=== PATIENT | male | born 1950 | race Caucasian/White ===

== ENCOUNTER 2018-05-30 13:17 | Inpatient (IN) ==
[2018-05-30] MEDS ORDERED: Sod Chloride 0.9% Inj 1,000 ML IV.CONT SCH (15:00)
--- NOTE | 2018-05-30 15:10 | ED ---
HPI General Chief Complaint: Neuro Symptoms/Deficit Stated Complaint: Needs CAT SCAN Time Seen by Provider: 05/30/18 14:42 Source: patient and family Mode of arrival: wheelchair Limitations: no limitations History of Present Illness HPI Narrative: 67-year-old male the presents to the ED for evaluation of the presents to the ED for evaluation of weakness to his left side of his body as well as some slurred speech that started since he woke up this morning. Family cannot really tell us how long symptoms have been going but per patient himself the symptoms started when he woke up. Last seen normal yesterday. Patient does have a history of heart disease as well as high cholesterol and hypertension. Takes medications for this. Takes a baby aspirin but no blood thinners. Per family and patient the symptoms continue which is what concerned him. Patient came here for evaluation. Per patient he feels like he keeps veering to the left side of his body. He feels weak on his left side of his arm and leg. He does appear to have some droop to the left side of his face and some slurred speech per family. No blurry vision or double vision. No pain. No chest pain or shortness of breath. No abdominal pain. No bowel movement or urinary issues. No fevers chills or sweats. No cough or runny nose. Related Data Allergies Allergy/AdvReac Type Severity Reaction Status Date / Time No Known Allergies Allergy Verified 05/30/18 14:52 Review of Systems ROS: all other systems reviewed are negative PMFSH History History Provided By: Patient and Family Member Social History Social History Recent Travel in [facility] within the Last 8 Weeks: No Recent Out of Country Travel within the Last 8 Weeks: No Exam Narrative Exam Narrative: GENERAL: Well appearing SKIN: Focused skin assessment warm/dry. HEAD: Atraumatic. Normocephalic. EYES: Pupils equal and round. No scleral icterus. No injection or drainage. ENT: No nasal bleeding or discharge. Mucous membranes pink and moist. Tongue is midline. No uvula deviation. Patient does have facial droop on the left side of the face mainly around the left mouth and cheek. NECK: Trachea midline. No JVD. CARDIOVASCULAR: Regular rate and rhythm. No murmur appreciated. RESPIRATORY: No accessory muscle use. Clear to auscultation. Breath sounds equal bilaterally. GASTROINTESTINAL: Abdomen soft, non-tender, nondistended. Hepatic and splenic margins not palpable. MUSCULOSKELETAL: No obvious deformities. No clubbing. No cyanosis. No edema. Patient has full range of motion of the upper and lower extremities bilaterally. Patient does have some weakness on the left side compared to the right. Patient does have some drift on the left compared to right but very minimal. Finger to nose status appears to be intact. Heel to gilbert does appears to be intact. Patient does appear to be slightly ataxic to the left side with gait otherwise unremarkable. NEUROLOGICAL: Awake and alert. No obvious cranial nerve deficits. Motor grossly within normal limits. Some slurred speech noted with dysarthria. PSYCHIATRIC: Appropriate mood and affect; insight and judgment normal. Course Initial Documented Vital Signs Temperature 97.9 F 05/30/18 13:56 Pulse Rate 60 05/30/18 13:56 Respiratory Rate 18 05/30/18 13:56 Blood Pressure 168/90 H 05/30/18 13:56 Pulse Oximetry 95 05/30/18 13:56 Last Documented Vital Signs Temperature 97.9 F 05/30/18 13:56 Pulse Rate 66 05/30/18 17:00 Respiratory Rate 20 05/30/18 17:00 Blood Pressure 187/84 H 05/30/18 17:00 Pulse Oximetry 96 05/30/18 18:09 NIH Stroke Scale NIH Stroke Scale Level of Consciousness: 0-Alert Orientation Questions: 0-Answers both correct Responds to Commands: 0-Both tasks correct Gaze Eye Movement: 0-Horizontal movement WNL Visual Alex: 0-No visual field defect Facial Movement: 1-Minor facial palsy Motor Functions Arm LEFT: 1-Drift before 10 seconds Motor Functions Arm RIGHT: 0-No drift Motor Functions Leg LEFT: 1-Drift before 5 seconds Motor Functions Leg RIGHT: 0-No drift Limb Ataxia: 1-Ataxia in one limb Sensory Loss: 0-No sensory loss Best Language: 0-Normal Articulation: 1-Mild dysarthia Extinction or Inattention Sensory: 0-Absent Total: 5 Medical Decision Making DARNELL Attestation DARNELL supervised visit: Yes Attestation: I, Dr. Fernandez, have reviewed the advance practice practitioner' s documentation and am in agreement, met with the patient face to face, made the diagnosis, and the medical decision making was done by me. *My assessment and Findings: The patient is a 67-year-old male who arrives to the emergency for dysarthria and left-sided weakness. The patient went to bed last night at 9:30 PM with no symptoms. When the patient awakened this morning he noticed that he has some mild dizziness and some left-sided weakness. The patient felt like he was walking to the left and that the left leg was slightly weak. The patient then noted some dysarthria around 12 to 12:30 PM. The patient now notes dysarthria with mild left-sided weakness, last normal was approximately 9:30 PM. I did perform a physical examination at bedside, visual alex were intact bilaterally, EOMs were intact, patient was noted to have mild left eyelid lag which she states is chronic, mild droop of the left face. He had mild drift the left arm and the left leg, however, they did not fall to the bed. Sensory was intact on the V1, V2, V3 distributions of the face as well as arms and legs symmetrically bilaterally. The patient was able to do finger to nose and heel to gilbert. The patient did have some dysarthria, was alert and oriented 4. Therefore, CT of the brain was ordered and CTA of the brain and neck were performed to evaluate if there is an acute occlusion that could be amenable to interventional radiology. I-STAT creatinine was ordered. I discussed the patient with radiology technicians at 3:18 PM in regards to set CT. MDM Narrative Medical decision making narrative: 67-year-old male the presents to the ED for evaluation of possible stroke. Patient was properly examined by me. Case was immediately discussed with my attending Dr. Fernandez was made aware of findings and agrees with plan. Patient is outside of the 4 hour herbert for stroke alert and TPA. At this time. CVA workup will be done and per his recommendation CT is will be done. My attending himself spoke with Dr. Hawkins who agree with this. CTAs were done as well as CT scan did not show any sign of acute disease. Labs and imaging otherwise were essentially unremarkable. At this time recommendation is for admission for further evaluation of the CVA. Patient and family member agree with this plan. HEPAS was paged. Dr Jean Baptiste agreed to admision. Medical Screen Exam Complete: Yes Emergency Medical Condition: Yes Differential Diagnosis Differential Diagnosis: CVA versus TIA versus neuropathy versus paresthesia versus weakness Medical Records Medical records reviewed: Yes I reviewed the patient's medical records. Lab Data Lab results reviewed: Yes I reviewed the patient's lab results. Lab results narrative: troponin negative Result diagrams: 05/30/18 15:00 05/30/18 15:00 Lab Results 05/30/18 05/30/18 05/30/18 Range/Units 15:00 15:00 15:00 WBC 5.5 (4.0-11.0) th/mm3 RBC 4.30 L (4.50-5.90) mil/mm3 Hgb 15.2 (13.0-17.0) gm/dL POC Hgb (Calc) (13.0-17.0) g/dL Hct 44.2 (39.0-51.0) % POC Hct (39-51.0) % MCV 102.9 H (80.0-100.0) fL MCH 35.4 H (27.0-34.0) pg MCHC 34.4 (32.0-36.0) % RDW 14.0 (11.6-17.2) % Plt Count 151 (150-450) th/mm3 MPV 9.1 (7.0-11.0) fL Neut % (Auto) 59.1 (16.0-70.0) % Lymph % (Auto) 26.2 (9.0-44.0) % [place] % (Auto) 12.8 H (0.0-8.0) % Eos % (Auto) 1.3 (0.0-4.0) % Baso % (Auto) 0.6 (0.0-2.0) % Neut # (Auto) 3.3 (1.8-7.7) th/mm3 Lymph # (Auto) 1.4 (1.0-4.8) th/mm3 [place] # (Auto) 0.7 (0.0-0.9) th/mm3 Eos # (Auto) 0.1 (0.0-0.4) th/mm3 Baso # (Auto) 0.0 (0.0-0.2) th/mm3 WBC Differential . Differential Comment Auto diff final ESR (0-20) mm/hr PT 10.4 (9.8-11.6) sec INR 1.0 Ratio APTT 28.0 (24.3-30.1) sec POC Sodium (137-144) mmol/L Sodium 146 H (136-145) meq/L POC Potassium (3.6-5.0) mmol/L Potassium 4.3 (3.5-5.1) meq/L POC Chloride (102-111) mmol/L Chloride 110 H (98-107) meq/L Carbon Dioxide 28.7 (21.0-32.0) meq/L Anion Gap 7 (5-15) meq/L POC BUN (5-21) mg/dL BUN 22 H (7-18) mg/dL Creatinine 1.23 (0.60-1.30) mg/dL POC Creatinine (0.6-1.3) mg/dL Estimated GFR 59 L (>89) mL/min POC Glucose (68-110) mg/dL Random Glucose 83 (74-106) mg/dL Calcium 9.1 (8.5-10.1) mg/dL Total Bilirubin 0.4 (0.2-1.0) mg/dL AST 17 (15-37) U/L ALT 32 (12-78) U/L Alkaline Phosphatase 63 (45-117) U/L Total Creatine Kinase 72 (39-308) U/L Troponin I Less than 0.02 L (0.02-0.05) ng/mL Total Protein 7.4 (6.4-8.2) g/dL Albumin 3.6 (3.4-5.0) g/dL 05/30/18 05/30/18 Range/Units 15:00 15:22 WBC (4.0-11.0) th/mm3 RBC (4.50-5.90) mil/mm3 Hgb (13.0-17.0) gm/dL POC Hgb (Calc) 13.3 (13.0-17.0) g/dL Hct (39.0-51.0) % POC Hct 39.0 (39-51.0) % MCV (80.0-100.0) fL MCH (27.0-34.0) pg MCHC (32.0-36.0) % RDW (11.6-17.2) % Plt Count (150-450) th/mm3 MPV (7.0-11.0) fL Neut % (Auto) (16.0-70.0) % Lymph % (Auto) (9.0-44.0) % [place] % (Auto) (0.0-8.0) % Eos % (Auto) (0.0-4.0) % Baso % (Auto) (0.0-2.0) % Neut # (Auto) (1.8-7.7) th/mm3 Lymph # (Auto) (1.0-4.8) th/mm3 [place] # (Auto) (0.0-0.9) th/mm3 Eos # (Auto) (0.0-0.4) th/mm3 Baso # (Auto) (0.0-0.2) th/mm3 WBC Differential Differential Comment ESR 10 (0-20) mm/hr PT (9.8-11.6) sec INR Ratio APTT (24.3-30.1) sec POC Sodium 143 (137-144) mmol/L Sodium (136-145) meq/L POC Potassium 3.9 (3.6-5.0) mmol/L Potassium (3.5-5.1) meq/L POC Chloride 108 (102-111) mmol/L Chloride (98-107) meq/L Carbon Dioxide (21.0-32.0) meq/L Anion Gap (5-15) meq/L POC BUN 23 H (5-21) mg/dL BUN (7-18) mg/dL Creatinine (0.60-1.30) mg/dL POC Creatinine 1.2 (0.6-1.3) mg/dL Estimated GFR (>89) mL/min POC Glucose 88 (68-110) mg/dL Random Glucose (74-106) mg/dL Calcium (8.5-10.1) mg/dL Total Bilirubin (0.2-1.0) mg/dL AST (15-37) U/L ALT (12-78) U/L Alkaline Phosphatase (45-117) U/L Total Creatine Kinase (39-308) U/L Troponin I (0.02-0.05) ng/mL Total Protein (6.4-8.2) g/dL Albumin (3.4-5.0) g/dL Imaging Data Attestation: I personally reviewed and interpreted this imaging study as follows : Radiologist's impression: Chest X-Ray 05/30/18 14:52 CONCLUSION: No acute disease Head CT 05/30/18 14:52 CONCLUSION: 1. No acute intracranial pathology. 2. Dense chronic bilateral basal ganglia and paraventricular calcifications are demonstrated. . Head CTA 05/30/18 15:10 CONCLUSION: 1. Unremarkable CTA of the brain for patient's age. Neck CTA 05/30/18 15:10 CONCLUSION: 1. Tortuous proximal left internal carotid artery with focal approximately 40- 45% stenosis exaggerated by tortuosity. 2. No significant right carotid artery stenosis. 3. Patent bilateral vertebral arteries. ECG Data EKG Prior to Arrival: No Attestation: I personally reviewed and interpreted this ECG as follows: Interpretation: EKG reveals sinus bradycardia with a heart rate of 57. No ischemic changes noted. Discharge Plan Discharge Disposition Patient Disposition: 30 Still Patient Discharge Details Diagnosis: Acute CVA (cerebrovascular accident) Physicians Team ED Provider: Eligio Fernandez ED Midlevel Provider: Walter Khan Primary Care Provider: Milo Cox Attending Provider: Ghulam Jean Baptiste Other Providers: Raymon Mccain Status ED Status: Admitted Patient
[2018-05-30 15:27] LABS: Baso % (Auto) 0.6 % (0.0-2.0); Eos # (Auto) 0.1 th/mm3 (0.0-0.4); Eos % (Auto) 1.3 % (0.0-4.0); Hematocrit 44.2 % (39.0-51.0); Hemoglobin 15.2 gm/dL (13.0-17.0); Lymph # (Auto) 1.4 th/mm3 (1.0-4.8); Lymph % (Auto) 26.2 % (9.0-44.0); Mean Corpuscular HGB Conc 34.4 % (32.0-36.0); Mean Corpuscular Hemoglobin 35.4 pg (27.0-34.0); Mean Corpuscular Volume 102.9 fL (80.0-100.0); Mean Platelet Volume 9.1 fL (7.0-11.0); Mono # (Auto) 0.7 th/mm3 (0.0-0.9); Mono % (Auto) 12.8 % (0.0-8.0); Neut # (Auto) 3.3 th/mm3 (1.8-7.7); Neut % (Auto) 59.1 % (16.0-70.0); Platelet Count 151 th/mm3 (150-450); White Blood Count 5.5 th/mm3 (4.0-11.0)
[2018-05-30 15:32] LABS: Prothrombin Time 10.4 sec (9.8-11.6)
--- NOTE | 2018-05-30 15:34 | XR ---
EXAM DATE: 05/30/2018 3:09 PM EDT AGE/SEX: 67 years / Male INDICATIONS: Stroke Alert CLINICAL DATA: This is the patient's initial encounter. Patient reports that signs and symptoms have been present for 1 day and indicates a pain score of 0/10. MEDICAL/SURGICAL HISTORY: Cardiovascular disease. None. COMPARISON: No prior exams available for comparison. FINDINGS: A single AP view of the chest demonstrates the lungs to be symmetrically aerated without evidence of mass, infiltrate or effusion. The cardiomediastinal contours are unremarkable. Osseous structures a re intact. CONCLUSION: No acute disease Electronically signed by: Milo Guerrero MD 05/30/2018 3:32 PM EDT
[2018-05-30 15:49] LABS: Albumin 3.6 g/dL (3.4-5.0); Anion Gap 7 meq/L (5-15); Calcium 9.1 mg/dL (8.5-10.1); Carbon Dioxide 28.7 meq/L (21.0-32.0); Chloride 110 meq/L (98-107); Glucose,Random 83 mg/dL (74-106); Potassium 4.3 meq/L (3.5-5.1); Sodium 146 meq/L (136-145)
[2018-05-30 15:59] LABS: Alanine Aminotransferase 32 U/L (12-78); Alkaline Phosphatase 63 U/L (45-117); Aspartate Aminotransferase 17 U/L (15-37); Blood Urea Nitrogen 22 mg/dL (7-18); Glomerular Filtration Rate 59 mL/min (>89); Total Protein 7.4 g/dL (6.4-8.2)
[2018-05-30 16:02] LABS: Creatine Kinase 72 U/L (39-308)
--- NOTE | 2018-05-30 16:10 | CT ---
EXAM DATE: 05/30/2018 4:05 PM EDT AGE/SEX: 67 years / Male INDICATIONS: Left sided weakness upon waking this am CLINICAL DATA: This is the patient's initial encounter. Patient reports that signs and symptoms have been present for 1 day and indicates a pain score of 0/10. MEDICAL/SURGICAL HISTORY: None. None. RADIATION DOSE: 36.27 CTDI (mGy) COMPARISON: No prior exams available for comparison. TECHNIQUE: CT of the head without contrast. Using automated exposure control and adjustment of the mA and/or kV according to patient size, radiation dose was kept as low as reasonably achievable to ob tain optimal diagnostic quality images. DICOM format image data is available electronically for revi ew and comparison. FINDINGS: Cerebrum: The ventricles are normal for age. No evidence of midline shift, mass lesion, hemorrhage or acute infarction. No extraaxial fluid collections are seen. There are dense calcifications noted in the basal ganglia regions bilaterally. The dense Calcifications also extend along the frontal para ventricular locations bilaterally. These findings are chronic. Posterior Fossa: The cerebellum and brainstem are intact. The 4th ventricle is midline. The cerebe llopontine angle is unremarkable. Extracranial: The visualized portion of the orbits is intact. Skull: The calvaria is intact. No evidence of skull fracture. CONCLUSION: 1. No acute intracranial pathology. 2. Dense chronic bilateral basal ganglia and paraventricular calcifications are demonstrated. . Electronically signed by: Kamron Greer MD 05/30/2018 4:09 PM EDT
--- NOTE | 2018-05-30 16:24 | CT ---
EXAM DATE: 05/30/2018 4:19 PM EDT AGE/SEX: 67 years / Male INDICATIONS: Left sided weakness upon waking this am CLINICAL DATA: This is the patient's initial encounter. Patient reports that signs and symptoms have been present for 1 day and indicates a pain score of 0/10. MEDICAL/SURGICAL HISTORY: None. None. RADIATION DOSE: 28.23 CTDI (mGy) ; Combined studies COMPARISON: No prior exams available for comparison. TECHNIQUE: Volumetric scanning was performed using a multi-row detector CT scanner during bolus infu mony of 73 ml Omnipaque 350 (iohexol) nonionic water-soluble contrast as a cumulative dose for multi ple exams. The data was post processed with a variety of visualization algorithms including full vo lume maximum intensity projection, multi-planar sliding thin slab reformation, curved planar reformat ion, and surface rendering techniques. Using automated exposure control and adjustment of the mA and /or kV according to patient size, radiation dose was kept as low as reasonably achievable to obtain o ptimal diagnostic quality images. DICOM format image data is available electronically for review and comparison. FINDINGS: There is excellent visualization of the major intracranial arteries out to the second-order branch ve ssels. There is no evidence for aneurysm, vessel truncation or stenosis, and no evidence for vascula r malformation. There is a patent left posterior communicating artery. There is some tortuosity of th e basilar artery. CONCLUSION: 1. Unremarkable CTA of the brain for patient's age. Electronically signed by: Kamron Greer MD 05/30/2018 4:22 PM EDT
--- NOTE | 2018-05-30 17:08 | CT ---
EXAM DATE: 05/30/2018 4:34 PM EDT AGE/SEX: 67 years / Male INDICATIONS: Left sided weakness upon waking this morning CLINICAL DATA: This is the patient's initial encounter. Patient reports that signs and symptoms have been present for 1 day and indicates a pain score of 0/10. MEDICAL/SURGICAL HISTORY: None. None. RADIATION DOSE: 28.23 CTDI (mGy) ; Combined studies COMPARISON: [facility], CTA HEAD W CONTRAST W 3D, 05/30/2018. . TECHNIQUE: Volumetric scanning was performed using a multirow detector CT scanner during bolus infus ion of 73 ml Omnipaque 350 (iohexol) nonionic water-soluble contrast as a cumulative dose for multip le exams. The data was postprocessed with a variety of visualization algorithms including full-volu me maximum intensity projection, multiplanar sliding thin-slab reformation, curved-planar reformation , and surface-rendering techniques. Using automated exposure control and adjustment of the mA and/or kV according to patient size, radiation dose was kept as low as reasonably achievable to obtain opti mal diagnostic quality images. DICOM format image data is available electronically for review and co mparison. Percent stenosis is calculated using the diameter of the stenotic region over the diameter of the nor mal distal internal carotid artery. FINDINGS: Aortic Arch: There is a three-vessel origin of the great vessels from the aorta. No evidence of ost ial narrowing Right Carotid: The common carotid artery is intact. The carotid bulb has a normal configuration wit hout ulceration or narrowing. The internal carotid artery lumen is smooth without stenosis. The ext ernal carotid artery is intact. Left Carotid: The common carotid artery is intact. The carotid bulb has a normal configuration with out ulceration or narrowing. There is significant tortuosity of the proximal internal carotid artery with focal approximately 40-45% stenosis exaggerated by the tortuosity. The external carotid artery i s intact. Vertebrals: The vertebral arteries have a symmetric diameter. No stenotic lesions are seen. General Findings: Lung apices are clear. Thyroid is unremarkable by CT. No significant adenopathy. CONCLUSION: 1. Tortuous proximal left internal carotid artery with focal approximately 40-45% stenosis exaggerat ed by tortuosity. 2. No significant right carotid artery stenosis. 3. Patent bilateral vertebral arteries. Electronically signed by: Johnathan Atwood MD 05/30/2018 5:07 PM EDT
--- NOTE | 2018-05-30 18:06 | MB ---
cc: Dennis Hawkins MD DATE: 05/30/2018 HISTORY OF PRESENT ILLNESS: This is a 67-year-old right-handed man with hypertension, hypercholesterolemia, and PA with stent 4 years ago. He takes 162 of aspirin a day. He went to bed, feeling fine. This morning he woke up, felt like he was a little bit off on the left side and it seemed to get worse around noon and he came into the hospital. A stroke alert was called, but he was outside the window for IV TPA. SOCIAL HISTORY: Nonsmoker. Occasionally has a drink. Lives with his friend. FAMILY HISTORY: Positive for cancer. Negative for seizure. Positive stroke in his mother. REVIEW OF SYSTEMS: Denies any diabetes, CABG, AFib, Coumadin, renal, hepatic or pulmonary disease, thyroid disease, lupus, ulcer, cancer, seizure, prior stroke, chest pain, palpitations, headache. ALLERGIES: NO KNOWN DRUG ALLERGIES. MEDICATIONS: He does take two 81 mg of aspirin a day, two of them. PHYSICAL EXAMINATION: GENERAL: He is in sinus rhythm on tele. VITAL SIGNS: Afebrile 168/90 18, 60. NECK: There were no carotid bruits. HEART: Regular rhythm without murmur. NEUROLOGIC: Pupils are equal. Visual dobbins are full. Extraocular movements intact without nystagmus. Face is symmetric with normal sensation. Tongue was midline. There is no drift. He had normal strength in upper and lower extremities bilaterally. DTRs trace throughout. Toes downgoing bilaterally. Pinprick is intact throughout. He is not ataxic on [id number]. He is a bit ataxic on [id number] on the left. Speech is fluent. He is not aphasic, not dysarthric now. DATA: He had a CTA of his head that was read as normal. He had a CT scan of the brain showed a lot of calcification, not only in the basal ganglia, but in the white matter tract bilaterally. I do not see any old strokes. He had a CTA of his neck. Results are pending. The CTA appears to show some very short segment narrowing. The official results pending. In the internal carotid artery and in the distal part of the internal carotid artery above that narrowing the artery is smaller compared to the right side. We await the official report. LABORATORY DATA: Labs show his CBC to be normal except an MCV of 103. His basic metabolic profile was normal. LFT, CPK, troponin, albumin, coags all normal. IMPRESSION: Sounds like he may have had a small stroke when he woke up sometime overnight. He did not get TPA as a result. What we have done is ordered an MRI of the brain and for now we will put him on Plavix, check his LDL. I would restart him on his home medications. I will be following with your in the hospital. We will check an echo and Holter and followup the CTA result. MD KAN Mensah/rom , 05:08 PM , 05:16 PM MTDD
[2018-05-30 18:14] LABS: Free T4 (Free Thyroxine) 0.84 ng/dL (0.76-1.46); Vitamin B12 463 pg/mL (193-986)
[2018-05-30] MEDS ORDERED: Gadobutrol PF 10 MMOL/10 ML Vial (for RAD) IV.SIG ONE (18:30)
[2018-05-30 18:46] LABS: Bilirubin,Urine Negative (Negative); Clarity,Urine Hazy (Clear); Color,Urine Yellow (Yellw/Straw); Glucose,Urine (UA) Negative (Negative); Leukocyte Esterase,Urine Negative (Negative); Mucus,Urine Few /lpf (Occasional); Nitrite,Urine Negative (Negative)
--- NOTE | 2018-05-30 19:04 | MR ---
EXAM DATE: 05/30/2018 6:51 PM EDT AGE/SEX: 67 years / Male INDICATIONS: CVA. Left sided weakness. CLINICAL DATA: This is the patient's initial encounter. Patient reports that signs and symptoms have been present for 1 day and indicates a pain score of 0/10. MEDICAL/SURGICAL HISTORY: Hypertension. Hemorrhoidectomy. ORIF left arm. COMPARISON: [facility] [place], [place] HEAD W/O CONTRAST, 05/30/2018. . TECHNIQUE: Multiplanar, multisequence examination of the brain was performed without and with 9.2 ml Gadavist (gadobutrol) contrast as a single exam dose. FINDINGS: Cerebrum: The ventricles are normal for age. There are areas of low signal seen in the basal gangli a, right caudate, and the periventricular regions corresponding to areas of dense calcification seen on the CT examination. No areas of enhancement or edema are seen in these regions. No evidence of mi dline shift, mass lesion, hemorrhage or acute infarction. No extraaxial fluid collections are seen. The pituitary gland and suprasellar cistern are normal in configuration. White Matter: No significant signal abnormalities are seen in the white matter. Posterior Fossa: The cerebellum and brainstem are intact. The 4th ventricle is midline. The cerebel lopontine angle is unremarkable. The cerebellar tonsils are normal in position. Diffusion Imaging: No focal areas of restricted diffusion are seen. No evidence of acute infarction . Extracranial: The visualized portions of the orbits are unremarkable. There is posterior right ethmo id and anterior right sphenoid sinus disease. Post Contrast: No abnormal areas of parenchymal or dural enhancement. No evidence of blood-brain ba rrier breakdown. CONCLUSION: 1. Dense calcification in the basal ganglia and periventricular regions. Significant mass effect are not seen. These are nonspecific. They aren't almost certainly chronic. They could be secondary to Fa hr's disease or Labrune syndrome. 2. No acute areas of hemorrhage or mass effect are seen. 3. Right ethmoid and sphenoid sinus disease. Electronically signed by: Milo Duarte MD 05/30/2018 7:03 PM EDT
[2018-05-30] MEDS ORDERED: Dextrose 50% in Water 50 ML Vial IV.PUSH PRN (19:21)
[2018-05-30] MEDS: Carvedilol 12.5 MG Tablet PO SCH (20:56)
[2018-05-30] MEDS: Heparin - SQ 10,000 UNITS/ML Vial SQ SCH (20:56)
[2018-05-30] MEDS: Insulin NovoLOG Aspart Correctional Sugar Inj SQ SCH (20:58)
--- NOTE | 2018-05-30 21:26 | P.HPIM ---
History of Present Illness Primary Care Physician: Milo Cox DO History of Present Illness: 67-year-old male with a history of HIV, hypertension and hyperlipidemia presented to the ED with complaints of left-sided weakness and slurred speech that started started yesterday but progressively worsened this morning. He states yesterday he noticed that he was tending to lean to one side and had an unsteady gait and then this morning when he woke up he had a slurred speech. He denies any chest pain, shortness of breath, fever, chills, dizziness, headaches on dysrhythmias. Inpatient Certification: I certify that the inpatient services were ordered in accordance with Medicare regulations governing the order. This includes certification that hospital inpatient services are reasonable and necessary and in the case of services not specified as inpatient-only under 42 CFR 419.22(n), that they are appropriately provided as inpatient services in accordance to with the 2-midnight benchmark under 43 CFR 412.3(e) Estimated Total Length of Stay (Days): 2 Plans for Post Hospital Care: Not yet determined Review of Systems All other systems reviewed negative except as stated in HPI PMFSH - History History Provided By: Patient, Family Member - Medical History Medical History: Medical History (Last Updated 05/30/18 @ 20:55 by Marica Rajan) HIV (human immunodeficiency virus infection) High cholesterol Hypertension - Surgical History Surgical History: Surgical History (Last Updated 05/30/18 @ 20:55 by Marcia Rajan) Stented coronary artery - Family History Family History: Family History (Last Updated 05/30/18 @ 22:39 by TODD Toussaint) Mother HTN (hypertension) - Tobacco History Second Hand Smoke Exposure: No Tobacco Use In Past 30 Days: No Smoking Status: Former smoker Tobacco Type: Cigarettes - Alcohol History How Often Do You Have a Drink Containing Alcohol: Monthly or less - Substance Use History Substance History: No History of Abuse - Travel History Recent Travel in the [place] Within the Last 8 Weeks: No Recent Travel Out of the Country Within the Last 8 Weeks: No - Immunization History Tetanus Immunization: Unsure Hx Influenza Vaccine This Season: Yes Medications and Allergies Active Medications: Active Medications Amitriptyline HCl (Elavil) 50 mg PO DAILY [facility] Aspirin (Ecotrin) 325 mg PO DAILY [facility] Last Admin: 05/30/18 17:31 Dose: 325 mg Carvedilol (Coreg) 12.5 mg PO BID [facility] Last Admin: 05/30/18 20:56 Dose: 12.5 mg Clopidogrel Bisulfate (Plavix) 75 mg PO DAILY [facility] Last Admin: 05/30/18 17:31 Dose: 75 mg Dextrose (D50w Vial) 50 ml IV.PUSH UNSCH PRN PRN Reason: PER HYPOGLYCEMIA PROTOCOL Dolutegravir Sodium (Tivicay) 50 mg PO BID [facility] Glucagon (Glucagon Inj) 1 mg OTHER UNSCH PRN PRN Reason: for Hypoglycemia Protocol Heparin Sodium (Porcine) (Heparin Inj) 5,000 units SQ Q12HR [facility] Last Admin: 05/30/18 20:56 Dose: 5,000 units Sodium Chloride (Ns Inj) 1,000 mls @ 70 mls/hr IV.CONT .[id number] [facility] Stop: 05/31/18 05:17 Last Admin: 05/30/18 15:35 Dose: 70 mls/hr Insulin Aspart (Novolog Insulin Correctional Sugar Inj) 0 unit SQ ACHS [facility]; Protocol Last Admin: 05/30/18 20:58 Dose: Not Given Maraviroc (Selzentry) 300 mg PO BID [facility] Med: Emtricitab-Rilpivir- Tenofo Ala (Odefsey) Tab 0 each PO DAILY [facility] Med: Valacyclovir 1,000 Mg Tablet 0 each PO DAILY [facility] Sodium Chloride (Ns Flush) 2 ml IV.FLUSH BID [facility] Sodium Chloride (Ns Flush) 2 ml IV.FLUSH PRN PRN PRN Reason: FLUSH AFTER USING IV ACCESS Allergies Allergy/AdvReac Type Severity Reaction Status Date / Time No Known Allergies Allergy Verified 05/30/18 14:52 Home Medications Medication Instructions Recorded Confirmed Type amitriptyline 50 mg PO DAILY 05/30/18 05/30/18 History amlodipine 2.5 mg PO DAILY 05/30/18 05/30/18 History aspirin [Aspirin Childrens] 81 mg PO DAILY 05/30/18 05/30/18 History atorvastatin 10 mg PO DAILY 05/30/18 05/30/18 History carvedilol 12.5 mg PO BID 05/30/18 05/30/18 History dolutegravir [Tivicay] 50 mg PO BID 05/30/18 05/30/18 History swohgcbqyc-wvjjcmrc-fdcvut ala 1 tab PO DAILY 05/30/18 05/30/18 History [Odefsey] losartan 50 mg PO DAILY 05/30/18 05/30/18 History maraviroc [Selzentry] 300 mg PO BID 05/30/18 05/30/18 History pioglitazone 45 mg PO DAILY 05/30/18 05/30/18 History valacyclovir 1,000 mg PO DAILY 05/30/18 05/30/18 History Exam Vital signs: Vital Signs 05/30/18 13:56 05/30/18 14:23 05/30/18 15:00 Temperature 97.9 F Pulse Rate 60 59 L 58 L Respiratory Rate 18 17 Blood Pressure 168/90 H 160/88 H 160/88 H Pulse Oximetry 95 97 05/30/18 17:00 05/30/18 18:09 05/30/18 19:00 Temperature Pulse Rate 66 59 L Respiratory Rate 20 18 Blood Pressure 187/84 H 137/78 Pulse Oximetry 95 96 Intake & Output 05/30/18 05/30/18 05/31/18 06:59 18:59 06:59 Weight 92.986 kg Narrative: GENERAL: This is a well-nourished, well-developed patient, in no apparent distress. SKIN: Warm, dry, intact, no ecchymosis or open lesions EYES: Pupils equal round and reactive, no scleral edema or drainage CARDIOVASCULAR: Regular rate and rhythm without murmurs, gallops, or rubs. RESPIRATORY: Clear to auscultation. Breath sounds equal bilaterally. No wheezes , rales, or rhonchi. GASTROINTESTINAL: Abdomen soft, non-tender, nondistended. Normal active bowel sounds MUSCULOSKELETAL: Extremities without clubbing, cyanosis, or edema. NEURO: Alert & Oriented x4 to person, place, time, situation. Moves all ext x4 , left side 3/4 muscle strength, left facial droop, mild left upper extremity drift, decreased left plantar flexion, slurred speech. Results - Labs CBC & Chem 7: 05/30/18 15:00 05/30/18 15:00 Labs: Short CBC 05/30/18 Range/Units 15:00 WBC 5.5 (4.0-11.0) th/mm3 Hgb 15.2 (13.0-17.0) gm/dL Hct 44.2 (39.0-51.0) % Plt Count 151 (150-450) th/mm3 BMP 05/30/18 15:00 Sodium 146 H Potassium 4.3 Chloride 110 H Carbon Dioxide 28.7 BUN 22 H Creatinine 1.23 Calcium 9.1 Cardiac Enzymes 05/30/18 Range/Units 15:00 Total Creatine Kinase 72 (39-308) U/L Troponin I Less than 0.02 L (0.02-0.05) ng/mL Liver Function 05/30/18 Range/Units 15:00 Total Bilirubin 0.4 (0.2-1.0) mg/dL AST 17 (15-37) U/L ALT 32 (12-78) U/L Alkaline Phosphatase 63 (45-117) U/L Albumin 3.6 (3.4-5.0) g/dL Urine 05/30/18 Range/Units 18:15 Urine Color Yellow (Yellw/Straw) Urine Clarity Hazy H (Clear) Urine pH 6.0 (5.0-8.5) Ur Specific [place] 1.030 (1.002-1.035) Urine Protein 30 H (Neg-Trace) mg/dL Urine Glucose (UA) Negative (Negative) mg/dL - Imaging Impressions Chest X-Ray 05/30/18 14:52 CONCLUSION: No acute disease Head CT 05/30/18 14:52 CONCLUSION: 1. No acute intracranial pathology. 2. Dense chronic bilateral basal ganglia and paraventricular calcifications are demonstrated. . Head CTA 05/30/18 15:10 CONCLUSION: 1. Unremarkable CTA of the brain for patient's age. Neck CTA 05/30/18 15:10 CONCLUSION: 1. Tortuous proximal left internal carotid artery with focal approximately 40- 45% stenosis exaggerated by tortuosity. 2. No significant right carotid artery stenosis. 3. Patent bilateral vertebral arteries. Head MRI 05/30/18 17:05 CONCLUSION: 1. Dense calcification in the basal ganglia and periventricular regions. Significant mass effect are not seen. These are nonspecific. They aren't almost certainly chronic. They could be secondary to Fahr's disease or Labrune syndrome. 2. No acute areas of hemorrhage or mass effect are seen. 3. Right ethmoid and sphenoid sinus disease. Caprini VTE Risk Assessment Caprini VTE Risk Assessment: Moderate/High Risk (score >= 2) Caprini Risk Assessment Model: Point Value = 1 Point Value = 2 Point Value = 3 Point Value = 5 Age 41-60 Minor surgery BMI > 25 kg/m2 Swollen legs Varicose veins or History of unexplained or recurrent spontaneous Oral contraceptives or hormone replacement Sepsis (< 1 month) Serious lung disease, including pneumonia (< 1 month) Abnormal pulmonary function Acute myocardial infarction Congestive heart failure (< 1 month) History of inflammatory bowel disease Medical patient at bed rest Age 61-74 Arthroscopic surgery Major open surgery (> 45 min) Laparoscopic surgery (> 45 min) Malignancy Confined to bed (> 72 hours) Immobilizing plaster cast Central venous access Age >= 75 History of VTE Family history of VTE Factor V Leiden Prothrombin [id number] Lupus anticoagulant Anticardiolipin antibodies Elevated serum homocysteine Heparin-induced thrombocytopenia Other congenital or acquired thrombophilia Stroke (< 1 month) Elective arthroplasty Hip, pelvis, or leg fracture Acute spinal cord injury (< 1 month) Prophylaxis Regimen: Total Risk Factor Score Risk Level Prophylaxis Regimen 0-1 Low Early ambulation 2 Moderate Order ONE of the following: *Sequential Compression Device (SCD) *Heparin 5000 units SQ BID 3-4 Higher Order ONE of the following medications: *Heparin 5000 units SQ TID *Enoxaparin/Lovenox 40 mg SQ daily (WT < 150 kg, CrCl > 30 mL/min) *Enoxaparin/Lovenox 30 mg SQ daily (WT < 150 kg, CrCl > 10-29 mL/min) *Enoxaparin/Lovenox 30 mg SQ BID (WT < 150 kg, CrCl > 30 mL/min) AND/OR *Sequential Compression Device (SCD) 5 or more Highest Order ONE of the following medications: *Heparin 5000 units SQ TID (Preferred with Epidurals) *Enoxaparin/Lovenox 40 mg SQ daily (WT < 150 kg, CrCl > 30 mL/min) *Enoxaparin/Lovenox 30 mg SQ daily (WT < 150 kg, CrCl > 10-29 mL/min) *Enoxaparin/Lovenox 30 mg SQ BID (WT < 150 kg, CrCl > 30 mL/min) AND *Sequential Compression Device (SCD) Assessment and Plan - Plan CVA Head CT reviewed and shows no acute intracranial pathology, chronic bilateral basal ganglia and periventricular calcifications MRI reviewed and shows no acute areas of hemorrhage or mass, dense calcification in the basal ganglia seen again no mass-effect Head CT unremarkable Neck CTA reviewed and shows tortuous proximal left internal carotid artery with focal approximately 40-45% stenosis exaggerated by tortuosity. -2D echo, Holter monitor ordered -Consult neurology -PT/OT/ST -Lipid profile, A1c ordered -NIH, neuro checks -Plavix ordered -Continue home atorvastatin -Head of bed flat Hypertension, chronic -Continue home medications carvedilol, hold losartan -monitor vitals HIV, chronic -Resume home medications, medications unavailable patient is able to take his own home meds Depression, chronic -Continue amitriptyline DVT prophylaxis: SCDs Discussed Condition With: Patient and RN
[2018-05-30 23:57] LABS: Amphetamine Screen,Urine Neg (Neg); Barbiturate Screen,Urine Neg (Neg); Cannabinoid Screen,Urine Neg (Neg); Cocaine Screen,Urine Neg (Neg); Opiate Screen,Urine Neg (Neg)
[2018-05-31 07:09] LABS: Chol/HDL Ratio 4.05 Ratio; HDL Cholesterol 37.7 mg/dL (40.0-60.0)
--- NOTE | 2018-05-31 08:07 | P.PNNEU ---
Subjective Subjective Comments: no new co bp up Active Medications: Active Medications Amitriptyline HCl (Elavil) 50 mg PO DAILY [facility] Aspirin (Ecotrin) 325 mg PO DAILY [facility] Last Admin: 05/30/18 17:31 Dose: 325 mg Atorvastatin Calcium (Lipitor) 10 mg PO DAILY [facility] Carvedilol (Coreg) 12.5 mg PO BID [facility] Last Admin: 05/30/18 20:56 Dose: 12.5 mg Clopidogrel Bisulfate (Plavix) 75 mg PO DAILY [facility] Last Admin: 05/30/18 17:31 Dose: 75 mg Dextrose (D50w Vial) 50 ml IV.PUSH UNSCH PRN PRN Reason: PER HYPOGLYCEMIA PROTOCOL Dolutegravir Sodium (Tivicay) 50 mg PO BID [facility] Last Admin: 05/30/18 21:49 Dose: Not Given Glucagon (Glucagon Inj) 1 mg OTHER UNSCH PRN PRN Reason: for Hypoglycemia Protocol Heparin Sodium (Porcine) (Heparin Inj) 5,000 units SQ Q12HR [facility] Last Admin: 05/30/18 20:56 Dose: 5,000 units Insulin Aspart (Novolog Insulin Correctional Sugar Inj) 0 unit SQ [facility]; Protocol Last Admin: 05/30/18 20:58 Dose: Not Given Maraviroc (Selzentry) 300 mg PO BID [facility] Last Admin: 05/30/18 21:49 Dose: Not Given [facility] Med: Emtricitab-Rilpivir- Tenofo Ala (Odefsey) Tab 0 each PO DAILY [facility]: Valacyclovir 1,000 Mg Tablet 0 each PO DAILY [facility] Sodium Chloride (Ns Flush) 2 ml IV.FLUSH BID [facility] Last Admin: 05/31/18 04:36 Dose: 2 ml Sodium Chloride (Ns Flush) 2 ml IV.FLUSH PRN PRN PRN Reason: FLUSH AFTER USING IV ACCESS Allergies/Adverse Reactions: Allergies Allergy/AdvReac Type Severity Reaction Status Date / Time No Known Allergies Allergy Verified 05/30/18 14:52 Physical Exam Vital signs: Vital Signs 05/30/18 13:56 05/30/18 14:23 05/30/18 15:00 Temperature 97.9 F Pulse Rate 60 59 L 58 L Respiratory Rate 18 17 Blood Pressure 168/90 H 160/88 H 160/88 H Pulse Oximetry 95 97 05/30/18 17:00 05/30/18 18:09 05/30/18 19:00 Temperature Pulse Rate 66 59 L Respiratory Rate 20 18 Blood Pressure 187/84 H 137/78 Pulse Oximetry 95 96 05/30/18 21:37 05/30/18 23:32 05/31/18 00:00 Temperature 98.0 F Pulse Rate 60 57 L Respiratory Rate 17 17 Blood Pressure 187/91 H Pulse Oximetry 93 L 05/31/18 04:00 05/31/18 05:00 Temperature 97.9 F Pulse Rate 52 L Respiratory Rate 17 17 Blood Pressure 193/95 H Pulse Oximetry 99 Intake & Output 05/30/18 05/31/18 05/31/18 18:59 06:59 18:59 Output Total 350 / 350 Balance -350 / -350 Weight 92.986 kg 92.9 kg Output: Urine 350 / 350 Other: Date of Last Bowel Movement 05/30/18 Narrative: some left droop puffs out left cheek 5/5 left speech minimal abn Objective Laboratory Results - last 24 hr 05/30/18 05/30/18 05/30/18 15:00 15:00 15:00 WBC 5.5 RBC 4.30 L Hgb 15.2 POC Hgb (Calc) Hct 44.2 POC Hct MCV 102.9 H MCH 35.4 H MCHC 34.4 RDW 14.0 Plt Count 151 MPV 9.1 Neut % (Auto) 59.1 Lymph % (Auto) 26.2 [place] % (Auto) 12.8 H Eos % (Auto) 1.3 Baso % (Auto) 0.6 Neut # (Auto) 3.3 Lymph # (Auto) 1.4 [place] # (Auto) 0.7 Eos # (Auto) 0.1 Baso # (Auto) 0.0 WBC Differential . Differential Comment Auto diff final ESR PT 10.4 INR 1.0 APTT 28.0 POC Sodium Sodium 146 H POC Potassium Potassium 4.3 POC Chloride Chloride 110 H Carbon Dioxide 28.7 Anion Gap 7 POC BUN BUN 22 H Creatinine 1.23 POC Creatinine Estimated GFR 59 L POC Glucose Random Glucose 83 Calcium 9.1 Total Bilirubin 0.4 AST 17 ALT 32 Alkaline Phosphatase 63 Total Creatine Kinase 72 Troponin I Less than 0.02 L Total Protein 7.4 Albumin 3.6 Triglycerides Cholesterol HDL Cholesterol Cholesterol/HDL Ratio Vitamin B12 Folate Free T4 Urine Color Urine Clarity Urine pH Ur Specific [place] Urine Protein Urine Glucose (UA) Urine Ketones Urine Occult Blood Urine Nitrate Urine Bilirubin Urine Urobilinogen Ur Leukocyte Esterase Urine RBC Urine WBC Urine Mucus Micro UA Comment Ur Microscopic Review Urine Culture Comments Urine Opiates Screen Ur Barbiturates Screen Ur Amphetamines Screen U Benzodiazepines Scrn Urine Cocaine Screen U Cannabinoids Screen 05/30/18 05/30/18 05/30/18 15:00 15:00 15:22 WBC RBC Hgb POC Hgb (Calc) 13.3 Hct POC Hct 39.0 MCV MCH MCHC RDW Plt Count MPV Neut % (Auto) Lymph % (Auto) [place] % (Auto) Eos % (Auto) Baso % (Auto) Neut # (Auto) Lymph # (Auto) [place] # (Auto) Eos # (Auto) Baso # (Auto) WBC Differential Differential Comment ESR 10 PT INR APTT POC Sodium 143 Sodium POC Potassium 3.9 Potassium POC Chloride 108 Chloride Carbon Dioxide Anion Gap POC BUN 23 H BUN Creatinine POC Creatinine 1.2 Estimated GFR POC Glucose 88 Random Glucose Calcium Total Bilirubin AST ALT Alkaline Phosphatase Total Creatine Kinase Troponin I Total Protein Albumin Triglycerides Cholesterol HDL Cholesterol Cholesterol/HDL Ratio Vitamin B12 463 Folate Greater than 20.0 H Free T4 0.84 Urine Color Urine Clarity Urine pH Ur Specific [place] Urine Protein Urine Glucose (UA) Urine Ketones Urine Occult Blood Urine Nitrate Urine Bilirubin Urine Urobilinogen Ur Leukocyte Esterase Urine RBC Urine WBC Urine Mucus Micro UA Comment Ur Microscopic Review Urine Culture Comments Urine Opiates Screen Ur Barbiturates Screen Ur Amphetamines Screen U Benzodiazepines Scrn Urine Cocaine Screen U Cannabinoids Screen 05/30/18 05/30/18 05/31/18 18:15 18:15 00:58 WBC RBC Hgb POC Hgb (Calc) Hct POC Hct MCV MCH MCHC RDW Plt Count MPV Neut % (Auto) Lymph % (Auto) [place] % (Auto) Eos % (Auto) Baso % (Auto) Neut # (Auto) Lymph # (Auto) [place] # (Auto) Eos # (Auto) Baso # (Auto) WBC Differential Differential Comment ESR PT INR APTT POC Sodium Sodium POC Potassium Potassium POC Chloride Chloride Carbon Dioxide Anion Gap POC BUN BUN Creatinine POC Creatinine Estimated GFR POC Glucose 116 H Random Glucose Calcium Total Bilirubin AST ALT Alkaline Phosphatase Total Creatine Kinase Troponin I Total Protein Albumin Triglycerides Cholesterol HDL Cholesterol Cholesterol/HDL Ratio Vitamin B12 Folate Free T4 Urine Color Yellow Urine Clarity Hazy H Urine pH 6.0 Ur Specific [place] 1.030 Urine Protein 30 H Urine Glucose (UA) Negative Urine Ketones Negative Urine Occult Blood Negative Urine Nitrate Negative Urine Bilirubin Negative Urine Urobilinogen Less than 2 Ur Leukocyte Esterase Negative Urine RBC Less than 1 Urine WBC 1 Urine Mucus Few H Micro UA Comment Culture not ind Ur Microscopic Review Not Reportable Urine Culture Comments Culture not ind Urine Opiates Screen Neg Ur Barbiturates Screen Neg Ur Amphetamines Screen Neg U Benzodiazepines Scrn Neg Urine Cocaine Screen Neg U Cannabinoids Screen Neg 05/31/18 06:01 WBC RBC Hgb POC Hgb (Calc) Hct POC Hct MCV MCH MCHC RDW Plt Count MPV Neut % (Auto) Lymph % (Auto) [place] % (Auto) Eos % (Auto) Baso % (Auto) Neut # (Auto) Lymph # (Auto) [place] # (Auto) Eos # (Auto) Baso # (Auto) WBC Differential Differential Comment ESR PT INR APTT POC Sodium Sodium POC Potassium Potassium POC Chloride Chloride Carbon Dioxide Anion Gap POC BUN BUN Creatinine POC Creatinine Estimated GFR POC Glucose Random Glucose Calcium Total Bilirubin AST ALT Alkaline Phosphatase Total Creatine Kinase Troponin I Total Protein Albumin Triglycerides 432 H Cholesterol 153 HDL Cholesterol 37.7 L Cholesterol/HDL Ratio 4.05 Vitamin B12 Folate Free T4 Urine Color Urine Clarity Urine pH Ur Specific [place] Urine Protein Urine Glucose (UA) Urine Ketones Urine Occult Blood Urine Nitrate Urine Bilirubin Urine Urobilinogen Ur Leukocyte Esterase Urine RBC Urine WBC Urine Mucus Micro UA Comment Ur Microscopic Review Urine Culture Comments Urine Opiates Screen Ur Barbiturates Screen Ur Amphetamines Screen U Benzodiazepines Scrn Urine Cocaine Screen U Cannabinoids Screen Review/Management - Review/Management Plan: imp recheck mri make sure no missed cva on plavix and statin if echo neg and holter done and bp down and repeat mri neg could dc ctax2 neg sb overnoc med team bring bp to 120/70 ok oob ok
[2018-05-31] MEDS ORDERED: VALACYCLOVIR 1000 MG PO SCH (09:00)
[2018-05-31] MEDS ORDERED: EMTRICITABINE PO SCH (09:00)
[2018-05-31] MEDS ORDERED: TENOFOVIR ALAFENAMIDE PO SCH (09:00)
[2018-05-31] MEDS ORDERED: RILPIVIRINE PO SCH (09:00)
[2018-05-31] MEDS: Heparin - SQ 10,000 UNITS/ML Vial SQ SCH ×2 (09:04→21:27)
[2018-05-31] MEDS: Insulin NovoLOG Aspart Correctional Sugar Inj SQ SCH ×4 (09:05→22:24)
[2018-05-31] MEDS: Carvedilol 12.5 MG Tablet PO SCH (09:05)
--- NOTE | 2018-05-31 09:35 | ECG ---
Date Performed: 05/30/2018 Time Performed: 15:18:34 PTAGE: 67 years EKG: SINUS BRADYCARDIA BORDERLINE LEFT AXIS DEVIATION BORDERLINE ECG NO PREVIOUS TRACING DOCTOR: Dennis Ferro Interpretating Date/Time 05/31/2018 09:33:11
[2018-05-31] MEDS ORDERED: amLODIPine 5 MG Tablet PO ONE (10:15)
--- NOTE | 2018-05-31 11:16 | MR ---
EXAM DATE: 05/31/2018 11:07 AM EDT AGE/SEX: 67 years / Male INDICATIONS: Left sided weakness. CLINICAL DATA: This is the patient's initial encounter. Patient reports that signs and symptoms have been present for 1 day and indicates a pain score of 0/10. MEDICAL/SURGICAL HISTORY: Hypertension. Hypercholesterolemia. Inguinal hernia repair. ORIF hamlin d. COMPARISON: [facility] [place] W & W/O CONTRAST, 05/30/2018. [facility] [place] HEAD W/O CONTRAST, 05/30/2018. . TECHNIQUE: Multiplanar, multisequence examination of the brain was performed without contrast. FINDINGS: Diffusion weighted images demonstrate a focus of restricted diffusion in the right basal ganglia iden tified on axial image 38 with corresponding decreased signal on the ADC map characteristic of an area of acute infarct. No additional foci of restricted diffusion are seen. There is mild diffuse promine nce of the CSF spaces, ventricles and cisterns. CONCLUSION: 1. There is a focus of acute infarction in the right basal ganglia/internal capsule region. 2. Mild atrophy. Electronically signed by: Michael Temple MD 05/31/2018 11:14 AM EDT
--- NOTE | 2018-05-31 13:46 | P.PNIM ---
Subjective Interval history: MRI from yesterday did not show acute infarction, however today there is evidence of an ischemic CVA. Patient still has some difficulty with speaking but he is swallowing well. No new complaints. Physical Exam Vital signs: Vital Signs 05/30/18 13:56 05/30/18 14:23 05/30/18 15:00 Temperature 97.9 F Pulse Rate 60 59 L 58 L Respiratory Rate 18 17 Blood Pressure 168/90 H 160/88 H 160/88 H Pulse Oximetry 95 97 05/30/18 17:00 05/30/18 18:09 05/30/18 19:00 Temperature Pulse Rate 66 59 L Respiratory Rate 20 18 Blood Pressure 187/84 H 137/78 Pulse Oximetry 95 96 05/30/18 21:37 05/30/18 23:32 05/31/18 00:00 Temperature 98.0 F Pulse Rate 60 57 L Respiratory Rate 17 17 Blood Pressure 187/91 H Pulse Oximetry 93 L 05/31/18 04:00 05/31/18 05:00 05/31/18 08:00 Temperature 97.9 F 97.3 F L Pulse Rate 52 L 50 L Respiratory Rate 17 17 18 Blood Pressure 193/95 H 210/102 H Pulse Oximetry 99 99 05/31/18 09:00 05/31/18 09:02 05/31/18 12:00 Temperature 97.4 F L Pulse Rate 48 L 50 L Respiratory Rate 18 Blood Pressure 213/104 H 221/99 H Pulse Oximetry 99 Intake & Output 05/30/18 05/31/18 05/31/18 18:59 06:59 18:59 Intake Total 1000 / 1000 Output Total 350 / 350 Balance -350 / -350 1000 / 1000 Weight 92.986 kg 92.9 kg Intake: IV 1000 / 1000 NS Inj 1,000 ML @ 70 mls/hr IV. 1000 / 1000 CONT .[id number] [facility] Rx#:[id number] Output: Urine 350 / 350 Other: Date of Last Bowel Movement 05/30/18 05/30/18 Narrative: GENERAL: NAD, A&Ox3 HEAD: Normocephalic. NECK: Supple, trachea midline. No lymphadenopathy. EYES: No scleral icterus. No injection or drainage. CARDIOVASCULAR: Regular rate and rhythm without murmurs, gallops, or rubs. RESPIRATORY: Breath sounds equal bilaterally. No accessory muscle use. GASTROINTESTINAL: Abdomen soft, non-tender, nondistended. MUSCULOSKELETAL: No cyanosis, or edema. SKIN: Warm and dry. NEURO: No focal neurological deficits. Dysarthric speech. Left side of face drooping. Results - Labs CBC & Chem 7: 05/30/18 15:00 05/30/18 15:00 Laboratory Results - last 24 hr 05/30/18 05/30/18 05/30/18 15:00 15:00 15:00 WBC 5.5 RBC 4.30 L Hgb 15.2 POC Hgb (Calc) Hct 44.2 POC Hct MCV 102.9 H MCH 35.4 H MCHC 34.4 RDW 14.0 Plt Count 151 MPV 9.1 Neut % (Auto) 59.1 Lymph % (Auto) 26.2 [place] % (Auto) 12.8 H Eos % (Auto) 1.3 Baso % (Auto) 0.6 Neut # (Auto) 3.3 Lymph # (Auto) 1.4 [place] # (Auto) 0.7 Eos # (Auto) 0.1 Baso # (Auto) 0.0 WBC Differential . Differential Comment Auto diff final ESR PT 10.4 INR 1.0 APTT 28.0 POC Sodium Sodium 146 H POC Potassium Potassium 4.3 POC Chloride Chloride 110 H Carbon Dioxide 28.7 Anion Gap 7 POC BUN BUN 22 H Creatinine 1.23 POC Creatinine Estimated GFR 59 L POC Glucose Random Glucose 83 Calcium 9.1 Total Bilirubin 0.4 AST 17 ALT 32 Alkaline Phosphatase 63 Total Creatine Kinase 72 Troponin I Less than 0.02 L Total Protein 7.4 Albumin 3.6 Triglycerides Cholesterol LDL Cholesterol, Calc HDL Cholesterol Cholesterol/HDL Ratio Vitamin B12 Folate Free T4 Urine Color Urine Clarity Urine pH Ur Specific [place] Urine Protein Urine Glucose (UA) Urine Ketones Urine Occult Blood Urine Nitrate Urine Bilirubin Urine Urobilinogen Ur Leukocyte Esterase Urine RBC Urine WBC Urine Mucus Micro UA Comment Ur Microscopic Review Urine Culture Comments Urine Opiates Screen Ur Barbiturates Screen Ur Amphetamines Screen U Benzodiazepines Scrn Urine Cocaine Screen U Cannabinoids Screen 05/30/18 05/30/18 05/30/18 15:00 15:00 15:22 WBC RBC Hgb POC Hgb (Calc) 13.3 Hct POC Hct 39.0 MCV MCH MCHC RDW Plt Count MPV Neut % (Auto) Lymph % (Auto) [place] % (Auto) Eos % (Auto) Baso % (Auto) Neut # (Auto) Lymph # (Auto) [place] # (Auto) Eos # (Auto) Baso # (Auto) WBC Differential Differential Comment ESR 10 PT INR APTT POC Sodium 143 Sodium POC Potassium 3.9 Potassium POC Chloride 108 Chloride Carbon Dioxide Anion Gap POC BUN 23 H BUN Creatinine POC Creatinine 1.2 Estimated GFR POC Glucose 88 Random Glucose Calcium Total Bilirubin AST ALT Alkaline Phosphatase Total Creatine Kinase Troponin I Total Protein Albumin Triglycerides Cholesterol LDL Cholesterol, Calc HDL Cholesterol Cholesterol/HDL Ratio Vitamin B12 463 Folate Greater than 20.0 H Free T4 0.84 Urine Color Urine Clarity Urine pH Ur Specific [place] Urine Protein Urine Glucose (UA) Urine Ketones Urine Occult Blood Urine Nitrate Urine Bilirubin Urine Urobilinogen Ur Leukocyte Esterase Urine RBC Urine WBC Urine Mucus Micro UA Comment Ur Microscopic Review Urine Culture Comments Urine Opiates Screen Ur Barbiturates Screen Ur Amphetamines Screen U Benzodiazepines Scrn Urine Cocaine Screen U Cannabinoids Screen 05/30/18 05/30/18 05/31/18 18:15 18:15 00:58 WBC RBC Hgb POC Hgb (Calc) Hct POC Hct MCV MCH MCHC RDW Plt Count MPV Neut % (Auto) Lymph % (Auto) [place] % (Auto) Eos % (Auto) Baso % (Auto) Neut # (Auto) Lymph # (Auto) [place] # (Auto) Eos # (Auto) Baso # (Auto) WBC Differential Differential Comment ESR PT INR APTT POC Sodium Sodium POC Potassium Potassium POC Chloride Chloride Carbon Dioxide Anion Gap POC BUN BUN Creatinine POC Creatinine Estimated GFR POC Glucose 116 H Random Glucose Calcium Total Bilirubin AST ALT Alkaline Phosphatase Total Creatine Kinase Troponin I Total Protein Albumin Triglycerides Cholesterol LDL Cholesterol, Calc HDL Cholesterol Cholesterol/HDL Ratio Vitamin B12 Folate Free T4 Urine Color Yellow Urine Clarity Hazy H Urine pH 6.0 Ur Specific [place] 1.030 Urine Protein 30 H Urine Glucose (UA) Negative Urine Ketones Negative Urine Occult Blood Negative Urine Nitrate Negative Urine Bilirubin Negative Urine Urobilinogen Less than 2 Ur Leukocyte Esterase Negative Urine RBC Less than 1 Urine WBC 1 Urine Mucus Few H Micro UA Comment Culture not ind Ur Microscopic Review Not Reportable Urine Culture Comments Culture not ind Urine Opiates Screen Neg Ur Barbiturates Screen Neg Ur Amphetamines Screen Neg U Benzodiazepines Scrn Neg Urine Cocaine Screen Neg U Cannabinoids Screen Neg 05/31/18 05/31/18 05/31/18 06:01 08:57 12:27 WBC RBC Hgb POC Hgb (Calc) Hct POC Hct MCV MCH MCHC RDW Plt Count MPV Neut % (Auto) Lymph % (Auto) [place] % (Auto) Eos % (Auto) Baso % (Auto) Neut # (Auto) Lymph # (Auto) [place] # (Auto) Eos # (Auto) Baso # (Auto) WBC Differential Differential Comment ESR PT INR APTT POC Sodium Sodium POC Potassium Potassium POC Chloride Chloride Carbon Dioxide Anion Gap POC BUN BUN Creatinine POC Creatinine Estimated GFR POC Glucose 92 91 Random Glucose Calcium Total Bilirubin AST ALT Alkaline Phosphatase Total Creatine Kinase Troponin I Total Protein Albumin Triglycerides 432 H Cholesterol 153 LDL Cholesterol, Calc HDL Cholesterol 37.7 L Cholesterol/HDL Ratio 4.05 Vitamin B12 Folate Free T4 Urine Color Urine Clarity Urine pH Ur Specific [place] Urine Protein Urine Glucose (UA) Urine Ketones Urine Occult Blood Urine Nitrate Urine Bilirubin Urine Urobilinogen Ur Leukocyte Esterase Urine RBC Urine WBC Urine Mucus Micro UA Comment Ur Microscopic Review Urine Culture Comments Urine Opiates Screen Ur Barbiturates Screen Ur Amphetamines Screen U Benzodiazepines Scrn Urine Cocaine Screen U Cannabinoids Screen - Imaging Impressions Chest X-Ray 05/30/18 14:52 CONCLUSION: No acute disease Head CT 05/30/18 14:52 CONCLUSION: 1. No acute intracranial pathology. 2. Dense chronic bilateral basal ganglia and paraventricular calcifications are demonstrated. . Head CTA 05/30/18 15:10 CONCLUSION: 1. Unremarkable CTA of the brain for patient's age. Neck CTA 05/30/18 15:10 CONCLUSION: 1. Tortuous proximal left internal carotid artery with focal approximately 40- 45% stenosis exaggerated by tortuosity. 2. No significant right carotid artery stenosis. 3. Patent bilateral vertebral arteries. Head MRI 05/30/18 17:05 CONCLUSION: 1. Dense calcification in the basal ganglia and periventricular regions. Significant mass effect are not seen. These are nonspecific. They aren't almost certainly chronic. They could be secondary to Fahr's disease or Labrune syndrome. 2. No acute areas of hemorrhage or mass effect are seen. 3. Right ethmoid and sphenoid sinus disease. Head MRI 05/31/18 00:00 CONCLUSION: 1. There is a focus of acute infarction in the right basal ganglia/internal capsule region. 2. Mild atrophy. Assessment and Plan - Plan 67-year-old male admitted secondary to CVA Acute CVA MRI from today shows evidence of CVA Echocardiogram pending Neurology following Continue atorvastatin Continue Plavix Permissive hypertension Hypertension Treatments on hold for now Allow permissive hypertension for 4872 hours more HIV Depression Continue baseline treatments DVT prophylaxis SCDs
--- NOTE | 2018-05-31 15:10 | ECHRPT ---
Indication: CVA/TIA CONCLUSIONS The left ventricular systolic function is normal with an estimated ejection fraction in the range of 60-65%. Mild concentric left ventricular hypertrophy. Doppler parameters are consistent with impaired left ventricular relaxtion (grade 1 diastolic dysfun ction). Trace mitral valve regurgitation. There is trace tricuspid valve regurgitation. BP: / HR: Rhythm: Sinus MEASUREMENTS (Male / Female) Normal Values Technical Quality:Fair 2D ECHO LV Diastolic Diameter PLAX 5.1 cm 4.2 - 5.9 / 3.9 - 5.3 cm LV Systolic Diameter PLAX 3.5 cm IVS Diastolic Thickness 1.2 cm 0.6 - 1.0 / 0.6 - 0.9 cm LVPW Diastolic Thickness 1.2 cm 0.6 - 1.0 / 0.6 - 0.9 cm LV Relative Wall Thickness 0.5 LVOT Diameter 2.2 cm LA Systolic Diameter LX 3.7 cm 3.0 - 4.0 / 2.7 - 3.8 cm M-MODE AV Cusp Separation MM 2.5 cm DOPPLER AV Peak Velocity 99.1 cm/s AV Peak Gradient 3.9 mmHg LVOT Peak Velocity 97.2 cm/s LVOT Peak Gradient 3.8 mmHg AV Area Cont Eq pk 3.7 cm Mitral E Point Velocity 67.1 cm/s Mitral A Point Velocity 97.7 cm/s Mitral E to A Ratio 0.7 LV E' Lateral Velocity 7.2 cm/s Mitral E to LV E' Lateral Ratio 9.3 LV E' Septal Velocity 7.3 cm/s Mitral E to LV E' Septal Ratio 9.2 TR Peak Velocity 265.0 cm/s TR Peak Gradient 28.1 mmHg Right Atrial Pressure 10.0 mmHg Pulmonary Artery Systolic Pressu 38.1 mmHg Right Ventricular Systolic Press 38.1 mmHg PV Peak Velocity 125.0 cm/s PV Peak Gradient 6.3 mmHg FINDINGS LEFT VENTRICLE Normal left ventricular size. Mild concentric left ventricular hypertrophy. The left ventricular systolic function is normal with an estimated ejection fraction in the range of 60-65%. Doppler parameters are consistent with impaired left ventricular relaxtion (grade 1 diastolic dysfun ction). RIGHT VENTRICLE Normal right ventricular size and systolic function. LEFT ATRIUM The left atrial size is normal. RIGHT ATRIUM The right atrial size is normal. ATRIAL SEPTUM No atrial level shunt is demonstrated by color flow Doppler interrogation. AORTA The aortic root and proximal ascending aorta are normal in size on limited imaging. MITRAL VALVE Structurally normal mitral valve. No mitral valve stenosis. Trace mitral valve regurgitation. AORTIC VALVE Trileaflet aortic valve. No aortic valve stenosis or regurgitation. TRICUSPID VALVE Structurally normal tricuspid valve. There is trace tricuspid valve regurgitation. The estimated pulmonary arterial pressure is 38.1 mmHg. PULMONARY VALVE No pulmonary valve regurgitation or stenosis. VESSELS The inferior vena cava was not well visualized. PERICARDIUM No pericardial effusion. Sal Fleming DO (Electronically Signed) Final Date:31 May 2018 15:10
[2018-05-31 18:10] LABS: Hemoglobin A1c 5.3 % (4.3-6.0)
[2018-06-01] MEDS: Heparin - SQ 10,000 UNITS/ML Vial SQ SCH (08:18)
[2018-06-01] MEDS: Insulin NovoLOG Aspart Correctional Sugar Inj SQ SCH (08:18)
[2018-06-01 08:35] VITALS: PULSE 64; RESP 20
[2018-06-01] MEDS ORDERED: amLODIPine 5 MG Tablet PO SCH (09:00)
--- NOTE | 2018-06-01 09:49 | P.DCO ---
- Physical Therapy Order: Evaluate and treat, Improve ambulation, Strength and gait training - Occupational Therapy Order: Evaluate and treat, Improve ADL, Gross motor coordination, Fine motor coordination - Speech Therapy Order: To improve: Speech and communication skills - Home Health Nursing Order: Medical education, Signs/symptoms of disease process, Nursing assessment with vital signs - Certification I have seen patient John Chirinos on 06/01/18. My clinical findings support the need for the requested home health care services because: Limited mobility due to disease progression, Deconditioned with increased weakness, Limited ability to care for self, High risk of falls I certify that my clinical findings support that this patient is homebound because: Unsteady gait/balance, Unsafe to leave home unassisted, Unable to use public transportation
--- NOTE | 2018-06-01 10:11 | P.DS ---
Date of admission: 05/30/18 17:52 Primary care physician: Milo Cox DO Brief History from admission: 67-year-old male with a history of HIV, hypertension and hyperlipidemia presented to the ED with complaints of left-sided weakness and slurred speech that started started yesterday but progressively worsened this morning. He states yesterday he noticed that he was tending to lean to one side and had an unsteady gait and then this morning when he woke up he had a slurred speech. He denies any chest pain, shortness of breath, fever, chills, dizziness, headaches on dysrhythmias. DS: Medications - Discharge Medications Prescriptions: clopidogrel [Plavix] 75 mg PO DAILY #30 tab DS: Summary Hospital Course: Mr. Chirinos is a 67-year-old male. He has a history of known vascular disease. She was admitted secondary to left facial droop with dysarthria. He says he had some dizziness at time of admit to. The dizziness has been improving. He is feeling close to baseline with his ambulation today. Slurred speech remains but is improving through time. Workup showed acute ischemic CVA as an etiology. Patient was previously on aspirin and now is treated with aspirin Plavix. The sickle therapy, speech therapy, and occupational therapy will occur at the patient's home upon discharge. The patient had no interest in discharging to an inpatient rehab center. Medically, patient is stable for discharge today cleared by neurology. Permissive 72 hour window for hypertension, blood pressure medications were resumed tomorrow morning. - Time Spent with Patient Total time spent providing and/or coordinating discharge services: Less than 30 minutes - Quality: VTE Deep Vein Thrombosis/Pulmonary Embolism Present on Admission: No Exam Vital signs: Vital Signs 05/31/18 12:00 05/31/18 16:00 05/31/18 16:30 Temperature 97.4 F L 97.3 F L Pulse Rate 50 L 54 L 55 L Respiratory Rate 18 18 Blood Pressure 221/99 H 172/88 H Pulse Oximetry 99 98 05/31/18 19:39 05/31/18 20:00 06/01/18 00:00 Temperature 97.5 F L 97.6 F Pulse Rate 60 60 Respiratory Rate 16 16 Blood Pressure 175/87 H 153/81 H Pulse Oximetry 96 96 96 06/01/18 04:00 06/01/18 08:00 06/01/18 08:35 Temperature 97.5 F L 97.7 F Pulse Rate 61 64 Respiratory Rate 17 20 Blood Pressure 145/81 H 188/101 H 189/99 H Pulse Oximetry 96 97 06/01/18 09:33 06/01/18 09:40 Temperature Pulse Rate Respiratory Rate Blood Pressure 175/100 H Pulse Oximetry 97 Intake & Output 05/31/18 06/01/18 06/01/18 18:59 06:59 18:59 Intake Total 1240 / 1240 Output Total Balance 1239 / 1239 Weight 89.811 kg 89.8 kg Intake: IV 1000 / 1000 NS Inj 1,000 ML @ 70 mls/hr IV. 1000 / 1000 CONT .[id number] [facility] Rx#:[id number] Oral 240 / 240 Output: Stool Other: # Voids 2 2 Date of Last Bowel Movement 05/30/18 05/30/18 Weight On Admission 89.81 kg Results Procedures completed during hospitalization: None Labs on day of discharge: Labs from last 24 hours 06/01/18 05/31/18 05/31/18 08:15 21:30 16:50 POC Glucose 103 91 104 Hemoglobin A1c JAIRO Screen 05/31/18 05/31/18 05/30/18 12:27 06:01 20:35 POC Glucose 91 Hemoglobin A1c 5.3 JAIRO Screen Neg - Impressions ITS Impressions Chest X-Ray 05/30/18 14:52 CONCLUSION: No acute disease Head CT 05/30/18 14:52 CONCLUSION: 1. No acute intracranial pathology. 2. Dense chronic bilateral basal ganglia and paraventricular calcifications are demonstrated. . Head CTA 05/30/18 15:10 CONCLUSION: 1. Unremarkable CTA of the brain for patient's age. Neck CTA 05/30/18 15:10 CONCLUSION: 1. Tortuous proximal left internal carotid artery with focal approximately 40- 45% stenosis exaggerated by tortuosity. 2. No significant right carotid artery stenosis. 3. Patent bilateral vertebral arteries. Head MRI 05/31/18 00:00 CONCLUSION: 1. There is a focus of acute infarction in the right basal ganglia/internal capsule region. 2. Mild atrophy. Discharge Plan - Discharge Disposition Patient Disposition: /Home Health Service - Discharge Condition Condition: Stable - Discharge Order Discharge Orders: Discharge Order (Routine); Ordered 06/01/18 Ordered By: Piter Jean Baptiste - Discharge Details Anticipated Discharge Date: 06/01/18 Discharge Comment: January discharge after cleared by Neurology - Physicians Team Primary Care Provider: Milo Cox Attending Provider: Piter Jean Baptiste Other Providers: Raymon Mccain MD, PhD ; Margarita Giles MD
[2018-06-01 12:14] VITALS: BP 152/95; TEMP 97.4; O2SAT 99
--- NOTE | 2018-06-01 17:02 | HM ---
Date Performed: 05/30/2018 Time Performed: 22:50:00 HOOKUP DATE: 05/30/18 10:50:00 PM [facility] ANALYSIS START TIME: 05/30/2018 10:55:00 PM ANALYSIS END TIME: 05/31/2018 11:09:07 AM PATIENT AGE: 67 PATIENT HEIGHT PATIENT WEIGHT DRUG LIST PATIENT DIAGNOSIS TEST NARRATIVE: The patient's average heart rate was 51 BPM. No episodes of tachycardia wer e noted. Heart rates less than 50 BPM were noted 39% of the time. No pauses exceeding 2.0 second s were noted. 19 ventricular ectopics, which represented < 1% of the total beat count, were noted . The highest ventricular ectopic frequency occurred from 07:00 AM to 08:00 AM Fri. During this abad e 9 VE(s) occurred. Ventricular ectopics were observed as 19 isolated beat(s) only. No couplets or runs were noted. 30 supraventricular ectopics, which represented < 1% of the total beat count, we re noted. The highest supraventricular ectopic frequency occurred from 03:00 AM to 04:00 AM Fri. Du ring this time 5 SVE(s) occurred. No episodes of ST depression (defined as -1.0 mm or more) were noted in channel 1. No episodes of ST depression (defined as -1.0 mm or more) were noted in channel 2. No episodes of ST depression (defined as -1.0 mm or more) were noted in channel 3. TEST INTERPRETATION: One couplet of PACs is seen. No other more complex forms of atrial ectopy a re present. No prolonged pauses occurred. Very little ventricular ectopy is present. No patient diary included. Overall, this is a very benign appearing holter. Signed by : Anurag Patel
== END 2018-06-01 12:00 | disposition home health service (06) ==
LOC: NEPE 13:17 → NEDA 17:52 → N06 21:51
PROVIDERS: ADMIT Hospitalist; ATTEND Hospitalist